=== PATIENT | female | born 1970 | race Caucasian/White ===

== ENCOUNTER 2019-01-19 10:26 | Day surgery (SDC) | payer OTHER, SELFPAY ==
[2019-01-19 11:03] VITALS: BP 120/86; PULSE 91; RESP 16; TEMP 36.6; O2SAT 95; BMI 48.2
[2019-01-19] MEDS: Lactated Ringers 1,000 ML 100 ML IV ×2 (11:38→15:31)
--- NOTE | 2019-01-19 12:14 | PCM.OPRPT ---
Problem List (1) Left renal stone Status: Acute Report of Operation Date of Procedure: 01/19/19 Pre-Operative Diagnosis: left renal calculus Post-Operative Diagnosis: same Surgery/Procedure Performed:: cystoscopy, left ureteral stent, left renal extracorporeal shockwave lithotripsy Description of Surgical Findings:: Stone causing obstruction, stent still able to be inserted, stone not visible at the conclusion of the case Type of Anesthesia:: General Description of Procedure: The patient is a 48-year-old female diagnosed with a left proximal ureteral/renal calculus with obstruction. After discussing risk benefits and alternatives she agreed to proceed with insertion of stent and extracorporal shockwave lithotripsy for definitive treatment. She was taken to the operating room and placed on the operating room table. Anesthesia monitored the head, neck, airway, IV access and vital signs throughout the case. Once anesthesia was a probably administered the patient was placed into dorsal lithotomy position was prepped and draped in usual sterile fashion. A cystourethroscopy was performed using a 30 degree lens. The bladder in its entirety was visualized and there are no masses, areas of erythema or other abnormality identified. The left ureter was intubated with a 0.035 Glidewire which was passed by the stone. A 6 [place] 24 cm double-J stent was then inserted with curling in the renal pelvis as well as the urinary bladder. The patient's bladder was emptied and the stone was aligned with the lithotripter using fluoroscopic visualization. The stone was then shocked with 3000 shocks and was no longer visible. The patient tolerated the procedure well and was awakened and taken to the recovery room in good condition. Grafts/Implants Used: left JJ stent - Complications none - Admit VTE Documentation VTE Present on Admission: Yes VTE Mechan Device Prophylaxis: SCD's VTE Pharm Prophylaxis ordered?: No Reason prophylaxis not ordered:: Treatment Not Indicated
--- NOTE | 2019-01-19 12:15 | DCINST_ITS ---
Discharge Diet: No Restrictions Discharge Activity: May not drive while taking narcotic pain medications. May resume sexual activity in: 2 weeks Call your doctor if you observe: Fever of 101 or Higher, Inability to urinate, Shortness of breath, Calf discomfort, Uncontrolled pain Allergies/Adverse Reactions: Allergies fluconazole [From Diflucan] Allergy (Verified 01/19/19 11:01) EYE SWELLING Medications to take at Discharge RX: Acyclovir 400 mg PO Q12H 01/16/19 RX: Arsenic Trioxide 10 mg IV PRN PRN 01/16/19 RX: Bisacodyl [Women's Laxative] 5 mg PO PRN PRN 01/16/19 RX: Cholecalciferol (Vitamin D3) [Vitamin D3] 5,000 unit PO DAILY 01/16/19 RX: Colestipol HCl 1 gm PO DAILY 01/16/19 RX: Levothyroxine [Synthroid] 88 mcg PO QHS 01/16/19 RX: Oxycodone HCl/Acetaminophen [Oxycodone-Acetaminophen 5-325] 1 ea PO PRN PRN 01/16/19 RX: Pantoprazole Sodium [Protonix] 40 mg PO PRN PRN 01/16/19 RX: Polyethylene Glycol 3350 [Miralax] 17 gm PO DAILY PRN 01/16/19 RX: Potassium Chloride [Klor-Con] 20 meq PO DAILY 01/16/19 RX: Spironolactone [Aldactone] 50 mg PO DAILY 01/16/19 RX: Tretinoin 40 mg PO BID 01/16/19 Cephalexin [Keflex] 500 mg PO Q12 3 Days #6 cap 01/19/19 Oxycodone HCl/Acetaminophen [Percocet 5/325] 1 - 2 tab PO Q6H PRN PRN 7 Days #10 tab 01/19/19 Phenazopyridine HCl [Pyridium] 200 mg PO TID PRN PRN 7 Days #30 tab 01/19/19 The following prescriptions were given: Cephalexin [Keflex] 500 mg PO Q12 3 Days #6 cap Prescription Printed Oxycodone HCl/Acetaminophen [Percocet 5/325] 1 - 2 tab PO Q6H PRN PRN 7 Days #10 tab PRN Reason: Pain Prescription Printed Phenazopyridine HCl [Pyridium] 200 mg PO TID PRN PRN 7 Days #30 tab PRN Reason: Bladder Spasms Prescription Printed Primary Care Physician: ANNE MUÑIZ [Other] Test Results: Test results from this visit will be discussed in further detail at your follow- up appointment, if applicable. Please Follow Up With: Heidy Badillo MD When: in 2-3 weeks with KUB prior Proposed Discharge Date: 01/19/19
[2019-01-19] MEDS: Cefazolin 2 GM in 0.9% Normal Saline 100 ML IV (12:51)
[2019-01-19] MEDS: Lubricating Jelly 60 GM Tube 30 GM TOPICAL (13:00)
[2019-01-19 13:53] VITALS: BP 120/86; BP 142/86; PULSE 111; RESP 16; TEMP 36.1; O2SAT 95
[2019-01-19 14:00] VITALS: BP 120/86; BP 141/90; PULSE 98; RESP 16; O2SAT 94
[2019-01-19 14:15] VITALS: BP 120/86; BP 138/89; PULSE 92; RESP 16; O2SAT 98
[2019-01-19 14:29] VITALS: BP 120/86; BP 143/84; PULSE 88; RESP 16; TEMP 36.4; O2SAT 100
[2019-01-19] MEDS: Acetaminophen 325 MG Tablet PO (15:32)
[2019-01-19] MEDS: oxyCODONE 5 MG Tablet PO (15:32)
[2019-01-19 16:29] VITALS: BP 120/86; BP 151/78; PULSE 89; RESP 18; TEMP 36.3; O2SAT 95
== END 2019-01-19 16:33 | disposition home or self-care (01) ==
LOC: SDC 10:30 → AC 10:31
PROVIDERS: Referring Provider Urology; Visit Provider Urology
PROC: (CPT 50590; principal; 2019-01-19 12:25)
DX: N13.2 Hydronephrosis with renal and ureteral calculous obstruction (principal); K58.9 Irritable bowel syndrome, unspecified; C95.90 Leukemia, unspecified not having achieved remission; E06.9 Thyroiditis, unspecified; Z87.442 Personal history of urinary calculi; Z79.899 Other long term (current) drug therapy
CPT/HCPCS: 50590; 52332; J7120; A4216; C1769; C2617; J2405

== ENCOUNTER 2019-02-10 06:31 | Day surgery (SDC) | payer OTHER, SELFPAY ==
[2019-02-10] VITALS (7 sets, daily range): BP systolic 96–124; BP diastolic 60–77; PULSE 76–98; RESP 16–18; TEMP 36.6–36.9; O2SAT 92–98; BMI 47.7
[2019-02-10] MEDS: Sodium Citrate/Citric Acid 30 ML UDC PO (07:13)
[2019-02-10] MEDS: Famotidine 20 MG Tablet 40 MG PO (07:13)
[2019-02-10] MEDS: Lactated Ringers 1,000 ML 100 ML IV ×2 (07:32→10:37)
--- NOTE | 2019-02-10 08:30 | CALC_PTH ---
PATIENT: BRYANT SAUCEDA LOC: [facility] [place] U#:[id number] AGE/SX: 48/F ROOM: RE02/10/[address]: Dr. Heidy Badillo MD : [id number] BED: DIS: 02/10/2019 SPEC #: [id number] RECD: 02/10/19 13:20 STATUS: CARLO PETAR #: [id number] KARLI: 02/10/19 08:[address]: Heidy Badillo DEPT: SURGICAL PATHOLOGY RECD BY: [address] ENTERED: 02/10/19 14:18 SP TYPE: Calculi OTHR DR: Out of Town Doctor Tissues: CALCULI Procedures: Surgery Specimen Level I HEADER OPERATION: Cystoscopy, ureteroscopy, basket stone extraction, retrograde PRE-OP DIAGNOSIS: Left renal calculi TISSUE SUBMITTED: Calculi GROSS DIAGNOSIS A fragment of stone, clinically left renal calculus, submitted entirely for analysis. SJ:basil 02/10/19 COMMENT The calculus is submitted in its entirety for chemical stone analysis. The results from this study will be reported separately. GROSS DESCRIPTION Received is one container labeled with the patient's name and designated left renal calculi. The specimen consists of a fragment of jules stone measuring 0.2 x 0.2 x 0.1 cm. The entire specimen is submitted for stone analysis. / ETHAN:basil 02/10/19 CPT: 42181
[2019-02-10] MEDS: Cefazolin 2 GM in 0.9% Normal Saline 100 ML IV (08:44)
--- NOTE | 2019-02-10 09:58 | OP.PCM_ITS ---
Problem List (1) Left renal stone Status: Acute Report of Operation Date of Procedure: 02/10/19 Pre-Operative Diagnosis: Left renal calculus Post-Operative Diagnosis: Same Surgery/Procedure Performed:: Cystoscopy, left ureteroscopy, stone basket extraction, retrograde pyelogram, left ureteral stent change Description of Surgical Findings:: Small left renal stones identified and removed with the stone basket Type of Anesthesia:: General Special Medications: Ancef 3 g Specimen's removed: Stone fragments x4 Description of Procedure: The patient is a 48-year-old female who underwent a left extracorporal shockwave lithotripsy along with left ureteral stent insertion for a obstructing UPJ stone on the left. Stone fragments then passed into the left kidney identified on CT scan. Due to her underlying issues of leukemia, being on chemotherapy, I did not want her left kidney to obstruct and the decision was made to go and after the fragments. Informed consent was obtained. The patient was taken to the operating room and placed on the operating room table. Anesthesia monitored the head, neck, airway, IV access and vital signs throughout the case. Once anesthesia was appropriately administered the patient was placed into dorsal lithotomy position and was prepped and draped in usual sterile fashion. A cystourethroscopy revealed the left ureteral stent. 2 separate 0.035 glide wires were inserted alongside the stent which was removed with graspers. One wire was used as a safety wire, the other was used for insertion of the ureteral reaccessed sheath. The access sheath was placed under fluoroscopic visualization over the wire without difficulty. That wire was then removed and ureteroscopy was performed through the reaccessed sheath. A large area of sludge and small stone fragments were basketed from the left lower pole, these were sent for evaluation. A retrograde pyelogram was then performed through the ureteroscope revealing no evidence of retained stone. Each calyx was directly then visualized and flushed. No fragments remained. The reaccessed sheath was then removed under direct visualization with the ureteroscope. The safety wire was then used for placement of a 6 [place] 24 cm double-J stent which had good curling in the upper pole as well as the urinary bladder and the patient's bladder was emptied and the case was terminated. She was taken to the recovery room in good condition. There were no complications during the procedure. Grafts/Implants Used: 6 x 24 JJ stent - Complications None - Admit VTE Documentation VTE Present on Admission: Yes VTE Mechan Device Prophylaxis: SCD's VTE Pharm Prophylaxis ordered?: No Reason prophylaxis not ordered:: Treatment Not Indicated
--- NOTE | 2019-02-10 10:03 | DCINST_ITS ---
Discharge Diet: No Restrictions Discharge Activity: May not drive while taking narcotic pain medications. Call your doctor if you observe: Fever of 101 or Higher, Inability to urinate, Inability to have a bowel movement, Shortness of breath, Chest pain, Calf discomfort Allergies/Adverse Reactions: Allergies fluconazole [From Diflucan] Allergy (Verified 02/04/19 08:15) EYE SWELLING Medications to take at Discharge Acyclovir 400 mg PO Q12H 01/16/19 Arsenic Trioxide 10 mg IV PRN PRN 01/16/19 Bisacodyl [Women's Laxative] 5 mg PO PRN PRN 01/16/19 Cholecalciferol (Vitamin D3) [Vitamin D3] 5,000 unit PO DAILY 01/16/19 Colestipol HCl 1 gm PO DAILY 01/16/19 Levothyroxine [Synthroid] 88 mcg PO QHS 01/16/19 Oxycodone HCl/Acetaminophen [Oxycodone-Acetaminophen 5-325] 1 ea PO PRN PRN 01/16/19 Pantoprazole Sodium [Protonix] 40 mg PO PRN PRN 01/16/19 Polyethylene Glycol 3350 [Miralax] 17 gm PO DAILY PRN 01/16/19 Potassium Chloride [Klor-Con] 20 meq PO DAILY 01/16/19 Spironolactone [Aldactone] 50 mg PO DAILY 01/16/19 Tretinoin 40 mg PO BID 01/16/19 Magnesium Oxide 250 mg PO BID 02/10/19 Primary Care Physician: ANNE MUÑIZ [Other] Test Results: Test results from this visit will be discussed in further detail at your follow- up appointment, if applicable. Please Follow Up With: Heidy Badillo MD When: call office for appt for stent removal. Proposed Discharge Date: 02/10/19
[2019-02-19 09:07] LABS: Ca Oxalate, Dihydrate 40 % (.); Ca Oxalate, Monohydrate 30 % (.); Calcium Phosphate 30 % (.)
== END 2019-02-10 12:08 | disposition home or self-care (01) ==
LOC: SDC 06:36 → AC 06:36
PROVIDERS: Referring Provider Urology; Visit Provider Urology
PROC: 0TJ98ZZ Inspection of Ureter, Via Natural or Artificial Opening Endoscopic (ICD-10-PCS; CPT 52352; principal; 2019-02-10 08:20)
DX: N13.2 Hydronephrosis with renal and ureteral calculous obstruction (principal); K21.9 Gastro-esophageal reflux disease without esophagitis; C95.90 Leukemia, unspecified not having achieved remission; E06.9 Thyroiditis, unspecified; Z87.442 Personal history of urinary calculi; Z79.899 Other long term (current) drug therapy
CPT/HCPCS: 00910; 52320; 52332; 76000; 82360; 88300; J7120; A4216; C1769; C2617; J2405